=== PATIENT | female | born 2000 | race Hispanic/Latino ===

== ENCOUNTER 2022-03-31 13:30 | Emergency (ER) | payer SELFPAY ==
--- NOTE | 2022-03-31 13:50 | EDPHYS ---
Physician Documentation [facility] Name: Nurys Mao Age: 21 yrs Sex: Female : 2000 Arrival Date: 03/31/2022 Time: 13:31 Bed Waiting Private MD: ED Physician Rae Tan HPI: 03/31 13:57 This 21 yrs old Female presents to ER via Ambulatory with complaints of Facial sd2 Droop. 13:57 21-year-old female presents with chief complaint of left-sided facial drooping that she sd2 just noticed yesterday. She reports she was diagnosed with COVID 2 weeks ago and has fully recovered since then. She states she has had difficulty closing her left eye all the way and difficulty keeping fluids in her mouth due to the left side of her mouth drooping. She denies any facial numbness, tingling or rash. She has not had any extremity weakness, slurred speech or other paresthesias.. Historical: - Allergies: 13:49 No Known Allergies; ll1 - PMHx: 13:49 None; ll1 - PSHx: 13:49 None; ll1 - Immunization history:: Client reports receiving the 2nd dose of the Covid vaccine. - Social history:: Smoking status: Patient denies any tobacco usage or history of. ROS: 13:57 Constitutional: Negative for fever, chills, and weight loss, Eyes: Negative for injury, sd2 pain, redness, and discharge, Cardiovascular: Negative for chest pain, palpitations, and edema, Respiratory: Negative for shortness of breath, cough, wheezing. Abdomen/GI: Negative for abdominal pain, nausea, vomiting, diarrhea. MS/Extremity: Negative for injury and deformity, Skin: Negative for injury, rash, and discoloration, Neuro: Negative for headache, numbness and tingling. Positive for L sided facial droop. Exam: 13:57 Constitutional: This is a well developed, well nourished patient who is awake, alert, sd2 and in no acute distress. Head/Face: Normocephalic, atraumatic. Chest/axilla: Normal chest wall appearance and motion. Nontender with no deformity. Cardiovascular: Regular rate and rhythm with a normal S1 and S2. No gallops, murmurs, or rubs. 2+ distal pulses. Respiratory: Lungs have equal breath sounds bilaterally, clear to auscultation and percussion. No rales, rhonchi or wheezes noted. No increased work of breathing, no retractions or nasal flaring. Abdomen/GI: Soft, non-tender, with normal bowel sounds. No guarding or rebound. No evidence of tenderness throughout. Skin: Warm, dry with normal turgor. Normal color with no rashes, no lesions, and no evidence of cellulitis. MS/ Extremity: Pulses equal, no cyanosis. Neurovascular intact. Full, normal range of motion. Ambulatory without difficulty. Neuro: Awake and alert, GCS 15, oriented to person, place, time, and situation. Cranial nerves II-XII grossly intact aside from L sided facial droop with ability to fully close L eyelid but not able to keep shut and asymmetric blinking of the R eye, inability to lift L eyebrow or smile with L side of the mouth. No significant sensory deficit. Motor strength 5/5 in all extremities. Sensory grossly intact. Cerebellar exam normal. Normal gait. Psych: Awake, alert, with orientation to person, place and time. Behavior, mood, and affect are within normal limits. Vital Signs: 13:45 BP 119 / 72; Pulse 89; Resp 17; Temp 97.8; Pulse Ox 100% ; Weight 85.28 kg; Height 5 ll1 ft. 2 in. (157.48 cm); Pain 0/10; 13:45 Body Mass Index 34.39 (85.28 kg, 157.48 cm) ll1 NIH Stroke Scale Scores: 14:05 NIHSS Score: 2 ss MDM: 13:50 Patient medically screened. sd2 13:57 Data reviewed: vital signs, nurses notes. Counseling: I had a detailed discussion with sd2 the patient and/or guardian regarding: the historical points, exam findings, and any diagnostic results supporting the discharge/admit diagnosis, the need for outpatient follow up, to return to the emergency department if symptoms worsen or persist or if there are any questions or concerns that arise at home. Medical screen evaluation completed. [facility] emergency medical condition absent. ED course: Discussed Walters's palsy with patient. Apparent clinically on exam. No evidence of CVA at this time. Likely 2/2 recent COVID viral illness. Will place on Valtrex and steroids. Pt with no evidence of rash or shingles at this time. Advised of need for outpatient follow up and given resources to do so. Also advised to patch L eye and keep the eye moist with OTC eye drops. Pt comfortable with plan and verbalizes understanding of discharge plan and strict return precautions.. Administered Medications: No medications were administered Disposition Summary: 03/31/22 13:50 Discharge Ordered Location: Home sd2 Problem: new sd2 Symptoms: are unchanged sd2 Condition: Stable sd2 Diagnosis - Walters's palsy sd2 Followup: sd2 - With: Private Physician - When: 1 week - Reason: Recheck today's complaints, Continuance of care, Re-evaluation by your physician Followup: sd2 - With: Emergency Department - When: As needed - Reason: Discharge Instructions: - Discharge Summary Sheet ll1 - Walters Palsy, Adult sd2 Forms: - Medication Reconciliation Form sd2 - Thank You Letter sd2 - Antibiotic Education sd2 - Prescription Opioid Use sd2 - Work release form ll1 Prescriptions: - Prednisone 20 mg Oral Tablet - take 3 tablets by ORAL route once daily for 5 days Decrease to 1/2 tablet daily sd2 for an additional 5 days following initial dose; 20 tablet; Refills: 0, Product Selection Permitted - Valtrex 500 mg Oral Tablet - take 2 tablet by ORAL route 3 times per day for 7 days; 42 tablet; Refills: 0, sd2 Product Selection Permitted NIH Stroke Scale - NIH Stroke Score Date: 03/31/2022 Time: 14:05 Total Score = 2 1a. Level of Consciousness (LOC) - 0(Alert) 1b. Level of Consciousness (LOC) (Month \T\ Age) - 0(Both) 1c. LOC Commands (Open \T\ Closes Eyes/Transportation Assistant) - 0(Both) 2. Best Gaze (Lateral Gaze Paresis) - 0(Normal) 3. Visual Field Loss - 0(No visual loss) 4. Facial Palsy - 2(Partial paralysis) 5a. Left Arm: Motor (10-second hold) - 0(No drift) 5b. Right Arm: Motor (10-second hold) - 0(No drift) 6a. Left Leg: Motor (5-second hold - always test supine) - 0(No drift) 6b. Right Leg: Motor (5-second hold - always test supine) - 0(No drift) 7. Limb Ataxia (finger/nose \T\ heel/odonnell - test with eyes open) - 0(Absent) 8. Sensory Loss (pinprick arms/legs/face) - 0(Normal) 9. Best Language: Aphasia (description/naming/reading) - 0(No aphasia) 10. Dysarthria (speech clarity - read or repeat words) - 0(Normal) 11. Extinction and Inattention (visual/tactile/auditory/spatial/personal) - 0(No abnormality) Initials: ss Signatures: Dillan Barry RN RN ll1 Rae Tan MD MD sd2
--- NOTE | 2022-03-31 13:50 | ER ---
Nurse's Notes [facility] Name: Nurys Mao Age: 21 yrs Sex: Female : 2000 Arrival Date: 03/31/2022 Time: : Bed Waiting Private MD: Diagnosis: Walters's palsy Presentation: 03/31 13:45 Chief complaint: Patient states: L facial droop since yesterday.. No fever. No other ll1 problems walking/talking. Ebola Screen: Patient denies travel to an Ebola-affected area in the 21 days before illness onset. No acute neurological deficit is noted. Initial Sepsis Screen: Does the patient meet any 2 criteria? No. Patient's initial sepsis screen is negative. Does the patient have a suspected source of infection? No. Patient's initial sepsis screen is negative. Risk Assessment: Do you want to hurt yourself or someone else? Patient reports no desire to harm self or others. Onset of symptoms was March 30, 2022. 13:45 Method Of Arrival: Ambulatory ll1 13:45 Acuity: MEG 4 ll1 13:47 Coronavirus screen: Client denies travel out of the [place] in the last 14 days. At this ll1 time, the client does not indicate any symptoms associated with coronavirus-19. Triage Assessment: 13:46 The onset of the patients symptoms was more than six hours ago. General: Appears in no ll1 apparent distress. Behavior is calm, cooperative, appropriate for age. General: states she had covid last week. . Pain: Denies pain. Neuro: Reports L side of face not moving well. . Cardiovascular: No deficits noted. Respiratory: No deficits noted. Stroke Activation: Symptom onset > 6 hours Physician: Stroke Attending; Name: ; Notified At: ; Arrived At: Physician: Chief Stroke Resident; Name: ; Notified At: ; Arrived At: Physician: Stroke Resident; Name: ; Notified At: ; Arrived At: Physician: ED Attending; Name: ; Notified At: ; Arrived At: Physician: ED Resident; Name: ; Notified At: ; Arrived At: Historical: - Allergies: 13:49 No Known Allergies; ll1 - PMHx: 13:49 None; ll1 - PSHx: 13:49 None; ll1 - Immunization history:: Client reports receiving the 2nd dose of the Covid vaccine. - Social history:: Smoking status: Patient denies any tobacco usage or history of. Screenin:05 Abuse screen: Denies threats or abuse. Denies injuries from another. Nutritional ss screening: No deficits noted. Tuberculosis screening: Never had TB. Fall Risk None identified. Assessment: 14:05 VAN Scoring: Arm Drift: Patients demonstrates NO arm weakness. Patient is VAN Negative. ss Patient has been NPO before screening. The patient is alert, and able to follow commands. The patient does not exhibit slurred or garbled speech. The patient is not exhibiting difficulty speaking. The patient is exhibiting difficulty understanding words. The patient is unable to swallow own secretions without drooling or the need for suction. Patient tolerated one teaspoon of water. No drooling, immediate coughing, gurgling, or clearing of the throat was noted. The patient tolerated 90mL of water. No drooling, immediate coughing, gurgling, or clearing of the throat was noted. The patient passed the bedside swallow screening. Oral medications may be given as ordered. Contact Physician for further diet orders. Provider notified of bedside swallow screening results: Rae Tan MD. Vital Signs: 13:45 BP 119 / 72; Pulse 89; Resp 17; Temp 97.8; Pulse Ox 100% ; Weight 85.28 kg; Height 5 ll1 ft. 2 in. (157.48 cm); Pain 0/10; 13:45 Body Mass Index 34.39 (85.28 kg, 157.48 cm) ll1 NIH Stroke Scale Scores: 14:05 NIHSS Score: 2 ss ED Course: 13:31 Patient arrived in ED. mr 13:33 Rae Tan MD is Attending Physician. sd2 13:46 Triage completed. ll1 13:46 Arm band placed on. ll1 14:05 Patient has correct armband on for positive identification. ss 14:05 No provider procedures requiring assistance completed. Patient did not have IV access ss during this emergency room visit. Administered Medications: No medications were administered Medication: 14:05 VIS not applicable for this client. ss Outcome: 13:50 Discharge ordered by . sd2 14:05 Discharged to home ambulatory. ss 14:05 Condition: good 14:05 Discharge instructions given to patient, family, Instructed on discharge instructions, follow up and referral plans. medication usage, Demonstrated understanding of instructions, follow-up care, medications, Prescriptions given X 2. 14:12 Patient left the ED. NIH Stroke Scale - NIH Stroke Score Date: 03/31/2022 Time: 14:05 Total Score = 2 1a. Level of Consciousness (LOC) - 0(Alert) 1b. Level of Consciousness (LOC) (Month \T\ Age) - 0(Both) 1c. LOC Commands (Open \T\ Closes Eyes/Methods Analyst Data Processing) - 0(Both) 2. Best Gaze (Lateral Gaze Paresis) - 0(Normal) 3. Visual Field Loss - 0(No visual loss) 4. Facial Palsy - 2(Partial paralysis) 5a. Left Arm: Motor (10-second hold) - 0(No drift) 5b. Right Arm: Motor (10-second hold) - 0(No drift) 6a. Left Leg: Motor (5-second hold - always test supine) - 0(No drift) 6b. Right Leg: Motor (5-second hold - always test supine) - 0(No drift) 7. Limb Ataxia (finger/nose \T\ heel/odonnell - test with eyes open) - 0(Absent) 8. Sensory Loss (pinprick arms/legs/face) - 0(Normal) 9. Best Language: Aphasia (description/naming/reading) - 0(No aphasia) 10. Dysarthria (speech clarity - read or repeat words) - 0(Normal) 11. Extinction and Inattention (visual/tactile/auditory/spatial/personal) - 0(No abnormality) Initials: Signatures: Rosanna Jimenes Paris Giron RN RN Dillan Barry RN RN 1 Rae Tan MD MD sd2 Corrections: (The following items were deleted from the chart) 13:49 13:45 Chief complaint: Patient states: Facial droop since yesterday.. ll1 ll1 13:49 13:45 Temp 97.8F; ll1 ll1 13:50 13:45 Pulse 89bpm; Resp 17bpm; Pulse Ox 100%; Temp 97.8F; 85.28 kg; Height 5 ll1 ft. 2 in.; BMI: 34.3; Pain 0/10; ll1
[2022-03-31 14:24] VITALS: BP 119/72; TEMP 97.8; O2SAT 100
== END 2022-03-31 14:12 | disposition home or self-care (01) ==
LOC: ER 13:30
DX: G51.0 Bell's palsy (principal)
CPT/HCPCS: 99282

== ENCOUNTER 2024-09-25 17:26 | Emergency (ER) | payer BC ==
--- OUTSIDE RECORDS SUMMARY | 2024-09-25 17:28 | XMS REPORT | Continuity of Care Document ---
Author Name Unknown Address [address] [facility] [address] [place] [address] [facility] thconnect Address [address] [facility] [place] [address] Care Team Providers Care Cleaning Crew Member Name Role Phone Unavailable Unavailable Unavailable Encounters Start Date/Time End Date/Time Encounter Type Admission Type Attending Clinicians Care Facility Care Department Encounter ID Source 2023-03-29 10:15:43 2023-03-29 10:15:43 Outpatient [facility] [id number] Lassiter Results Test Description Test Time Test Comments Results Result Co mments Source [id number] 06:55:18* Test Item Value Reference Range Interpretation Comme nts TESTOSTERONE (test code = 2830) 53 NG/DL See_Comment NOTE: TOTAL TESTOSTERONE ASSAY SENSITIVITY IS 12 NG/DL. TO DETERMINE NORMAL VS. SUBNORMAL TESTOSTERONE IN CHILDREN AND WOMEN, CONSIDER TESTING WITH ULTRASENSITIVE TESTOSTERONE. [Automated message] The system which generated this result transmitted reference range: <=55. The reference range was not used to interpret this result as normal/abnormal. FSH + LH [id number] 06:54:22* Test Item Value Reference Range Interpretation Comme nts FOLLICLE STIM HORMONE (test code = 2700) 5.9 IU/L SEE BELOW EXPEC MARY JANE VALUES FOR FSH FOR FEMALES >17 YEARS MALES FEMALES >=18 YEARS 1.5-12.4 IU/L FOLLICULAR 3.5-12.5 IU/L MID-CYCLE PEAK 4.7-21.5 IU/L LUTEAL PHASE 1.7-7.7 IU/L POSTMENOPAUSAL 25.8-134.8 IU/L LUTEINIZING HORMONE (test code = 2776) 9.9 IU/L SEE BELOW EXPEC MARY JANE VALUES FOR LH FOR FEMALES >17 YEARS MALES FEMALES >=18 YEARS 1.8-8.6 IU/L FOLLICULAR 2.4-12.6 IU/L MID-CYCLE PEAK 14.0-95.6 IU/L LUTEAL PHASE 1.0-11.4 IU/L POSTMENOPAUSAL 7.7-58.5 IU/L TSH, THIRD [id number] 06:54:22* Test Item Value Reference Range Interpretation [facility] TSH, THIRD GENERATION (test code = 2821) 1.420 UIU/ML 0.400-4.100 [id number] 06:54:22* Test Item Value Reference Range Interpretation [facility] PROLACTIN (test code = 2800) 16.9 NG/ML 5.0-37.0 NOTE: Methodolog y is Milagros Ina Electrochemiluminescence Immunoassay (ECLIA). Values obtained with different assays/manufacturers cannot be used interchangeably. Results should not be used as sole basis to establish the presence or absence of malignancy. [id number] 06:54:22* Test Item Value Reference Range Interpretation [facility] ESTRADIOL (test code = 2505) 56.8 PG/ML SEE BELOW EXPECTED VALUES FOR ESTRADIOL FOR FEMALES >=18 YEARS FOLLICULAR . . . . . . . . . . . . . PG/ML 12.4-233.0 OVULATION. . . . . . . . . . . . . . PG/ML 41.0-398.0 LUTEAL PHASE . . . . . . . . . . . . PG/ML 22.3-341.0 POSTMENOPAUSAL SUPPLEMENTED/NON-SUPP . PG/ML <138.0/<20.0 NOTE: TO DETERMINE NORMAL VS. SUBNORMAL ESTRADIOL IN POSTMENOPAUSAL FEMALES, CONSIDER ULTRASENSITIVE ESTRADIOL ([facility] ORDER CODE 5678). METHODOLOGY IS MILAGROS INA ELECTROCHEMILUMINESCENT IMMUNOASSAY WITH A LIMIT OF DETECTION OF 17 PG/ML. HEPATITIS PANEL, [id number] 05:15:03* Test Item Value Reference Range Interpretation [facility] HEPATITIS A IgM (test code = 81851) NON-REACTIVE NON-REACTIVE HEPATITIS B CORE IgM (test code = 4644) NON-REACTIVE NON-REACTIVE HEPATITIS B SURF AG (test code = 2739) NON-REACTIVE NON-REACTIVE HEPATITIS C ANTIBODY (test code = 4675) NON-REACTIVE NON-REACTIVE INTERPRETATION HEPATITIS A: (test code = 2552) (NOTE) Hepatitis A serology shows no evidence of acute hepatitis A. INTERPRETATION HEPATITIS B: (test code = 73485) (NOTE) Hepatitis B serology shows no evidence of acute hepatitis B andno indication of exposure to hepatitis B virus in the previous nicholas eight months. INTERPRETATION HEPATITIS C: (test code = 45053) (NOTE) Hepatitis C serology shows no evidence of exposure to hepatitisC virus at this time. It can take up to 12 months after exposure tothe hepatitis C virus for antibodies to become detectable in the blood in certain patients. HIV 1/2 4TH GEN, RFLX [id number] 05:15:03* Test Item Value Reference Range Interpretation Comme nts HIV 1/2 4TH GEN, RFLX CONF (test code = 3514) NON-REACTIVE NON-REACTIVE UNLESS OTHERWISE INDICATED, ALL TESTING PERFORMED [facility] [address] [place] [address] FIRE PATROLLER: ALY CHA M.D. [place] NUMBER [id number] [facility] [place]. [id number] 03:13:49* Test Item Value Reference Range Interpretation Comme nts RPR RESULT (test code = 3501) NON-REACTIVE NON-REACTIVE RPR TITER (test code = 3500) NOT INDIC. TITER NOT INDIC.
[2024-09-25] MEDS ORDERED: LIDOCAINE 1% MPF 2 ML AMPULE ONE (17:59)
[2024-09-25] MEDS ORDERED: LIDOCAINE 1% MPF 5 ML VIAL ONE (18:11)
[2024-09-25] MEDS ORDERED: BUPIVACAINE 0.5% PF 10 ML VIAL ONE (18:11)
[2024-09-25] MEDS ORDERED: ACETAMINOPHEN 500 MG TAB ONE (18:39)
--- NOTE | 2024-09-25 19:15 | RAD REPORT ---
Exam:Finger-Thumb Left CLINICAL HISTORY: Left finger pain FINDINGS: No fracture or dislocation seen. A radiopaque foreign body not seen A bandage overlies the second digit.
--- NOTE | 2024-09-25 19:58 | ER ---
Nurse's Notes [facility] Name: Nurys Mao Age: 24 yrs Sex: Female : 2000 Arrival Date: 09/25/2024 Time: 17:26 Bed 11 Private MD: Diagnosis: Laceration without foreign body of left index finger without damage to nail Presentation: 09/25 17:44 Chief complaint: Patient states: few hours ago, cut finger with new blade and it ko1 wouldn't stop bleeding. Coronavirus screen: At this time, the client does not indicate any symptoms associated with coronavirus-19. Ebola Screen: No symptoms or risks identified at this time. Initial Sepsis Screen: Does the patient meet any 2 criteria? No. Patient's initial sepsis screen is negative. Does the patient have a suspected source of infection? No. Patient's initial sepsis screen is negative. Risk Assessment: Do you want to hurt yourself or someone else? Patient reports no desire to harm self or others. Onset of symptoms was September 25, 2024. 17:44 Method Of Arrival: Ambulatory ko1 17:44 Acuity: MEG 4 ko1 Triage Assessment: 17:47 General: Appears in no apparent distress. Behavior is calm, cooperative, appropriate ko1 for age. Pain: Complains of pain in palmar aspect of distal phalanx of left index finger. PROCUREMENT PROFESSIONAL LOGISTICS: 17:47 LMP 09/18/2024, unknown ko1 Historical: - Allergies: 17:47 No Known Allergies; ko1 - Home Meds: 17:47 None [Active]; ko1 - PMHx: 17:47 None; ko1 - PSHx: 17:47 None; ko1 - Immunization history:: Adult Immunizations up to date. - Infectious Disease History:: Denies. - Social history:: Smoking status: Patient denies any tobacco usage or history of. Screenin:14 [facility] ED Fall Risk Assessment (Adult) History of falling in the last 3 months, hb including since admission No falls in past 3 months (0 pts) Confusion or Disorientation No (0 pts) Intoxicated or Sedated No (0 pts) Impaired Gait No (0 pts) Mobility Assist Device Used No (0 pt) Altered Elimination No (0 pt) Score/Fall Risk Level 0 - 2 = Low Risk Oriented to surroundings, Maintained a safe environment, Educated pt \T\ family on fall prevention, incl call for assistance when getting out of bed. Abuse screen: Denies threats or abuse. Denies injuries from another. Nutritional screening: No deficits noted. Tuberculosis screening: No symptoms or risk factors identified. Assessment: 18:14 General: Appears in no apparent distress. Behavior is calm, cooperative. Neuro: Level hb of Consciousness is awake, alert, obeys commands, Oriented to person, place, time, situation. Cardiovascular: Patient's skin is warm and dry. Respiratory: Respiratory effort is even, unlabored, Respiratory pattern is regular, symmetrical. Injury Description: Laceration sustained to palmar aspect of distal phalanx of left index finger is 0.5 to 2.5 cm long, was sustained 30-60 minutes ago. a small amount of bleeding noted at this time. 19:16 Reassessment: Patient and/or family updated on plan of care and expected duration. Pain br2 level reassessed. Patient is alert, oriented x 3, equal unlabored respirations, skin warm/dry/pink. General: Appears in no apparent distress. comfortable, Behavior is calm, cooperative. Pain: Complains of pain in palmar aspect of distal phalanx of left index finger Pain does not radiate. Pain currently is 6 out of 10 on a pain scale. Neuro: Cheney Agitation-Sedation Scale (RASS): 0 - Alert and Calm. 20:02 Reassessment: Patient and/or family updated on plan of care and expected duration. Pain br2 level reassessed. Patient is alert, oriented x 3, equal unlabored respirations, skin warm/dry/pink. Patient states feeling better. Patient states symptoms have improved. Vital Signs: 17:44 BP 133 / 93; Pulse 92; Resp 18; Temp 98.4; Pulse Ox 100% ; ko1 ED Course: 17:28 Patient arrived in ED. mr 17:30 Pedro Arthur PA is PHCP. cp 17:31 Jann Lopez MD is Attending Physician. cp 17:47 Triage completed. ko1 17:47 Arm band placed on right wrist. Patient placed in an exam room, on a stretcher, Patient ko1 notified of wait time. 17:58 Nilsa Malone, TERRIE is Primary Nurse. hb 18:14 Patient has correct armband on for positive identification. Provided Education on: hb laceration repair, aftercare, use of call light. 18:14 No provider procedures requiring assistance completed. Patient did not have IV access hb during this emergency room visit. 19:03 XRAY Finger-Thumb Left In Process Unspecified. EDMS 20:02 Wound care: to laceration located on palmar aspect of distal phalanx of left index br2 finger was cleaned with Betadine, soaked in Betadine solution. 20:03 Dressings: Adaptic X 1; palmar aspect of distal phalanx of left index finger coban with br2 triple antibiotic. Recheck. Administered Medications: 18:46 Drug: Acetaminophen PO 1000 mg PO once Route: PO; hb 20:06 Follow up: Response: No adverse reaction br2 19:38 Drug: Bupivacaine Infiltration (0.5 %) 10 ml 10 ml Infiltration once Volume: 10 ml; br2 Route: Infiltration; 19:38 Drug: Lidocaine Infiltration (1 %) 5 ml 5 ml Infiltration once; to bedside Volume: 5 br2 ml; Route: Infiltration; Medication: 18:14 VIS not applicable for this client. hb Outcome: 19:57 Discharge ordered by . adalid 20:04 Discharged to home ambulatory, br2 20:04 Condition: improved 20:04 Discharge instructions given to patient, Instructed on discharge instructions, follow up and referral plans. Demonstrated understanding of instructions, follow-up care, 20:06 Patient left the ED. br2 Signatures: Dispatcher [employer] EDGA Rosanna Jimenes, Michael Rodriguez mr Pedro Arthur PA PA cp Baxter, Heather, RN RN Safia Gregory RN RN ko1 Shabana Cowart RN RN br2
--- NOTE | 2024-09-25 19:59 | EDPHYS ---
Physician Documentation [facility] Name: Nurys Mao Age: 24 yrs Sex: Female : 2000 Arrival Date: 09/25/2024 Time: 17:26 Bed 11 Private MD: ED Physician Jann Lopez HPI: 09/25 18:20 This 24 yrs old Female presents to ER via Ambulatory with complaints of Finger cp laceration. 18:20 The patient or guardian reports a laceration, simple. The complaints affect the palmar cp aspect of distal phalanx of left index finger. 18:20 Context: resulted from use of knife. Onset: The symptoms/episode began/occurred today. cp Associated signs and symptoms: The patient has no apparent associated signs or symptoms. Severity of symptoms: in the emergency department the symptoms bleeding controlled with pressure dressing. 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 - Infectious Disease History:: Denies. - Social history:: Smoking status: Patient denies any tobacco usage or history of. ROS: 18:25 Skin: Positive for laceration(s), of the palmar aspect of distal phalanx of left index cp finger, 18:25 Constitutional: history per hpi cp 18:25 Neuro: Negative for numbness, weakness, cp 18:25 All other systems are negative, Exam: 18:30 Head/Face: Normocephalic, atraumatic. cp 18:30 Constitutional: The patient appears in no acute distress, alert, awake, comfortable, well developed, well nourished, 18:30 Musculoskeletal/extremity: Extremities: noted in the left index finger: Perfusion: the extremity is normally perfused throughout, Sensation intact. 18:30 Skin: injury, laceration(s), the wound is approximately 2 cm(s), of the palmar aspect of distal phalanx of left index finger, that can be described as clean, no foreign body, linear, with mild bleeding, nail intact with injury, Vital Signs: 17:44 BP 133 / 93; Pulse 92; Resp 18; Temp 98.4; Pulse Ox 100% ; ko1 Laceration: 19:53 Wound Repair of 2cm ( 0.8in ) subcutaneous laceration to palmar aspect of distal cp phalanx of left index finger. Linear shaped.. Distal neuro/vascular/tendon intact. Anesthesia: Digital block administered with 4 mls of Lido/Marcaine. Wound prep: Moderate cleansing by me, Wound irrigation by me. Skin closed with 4 5-0 Prolene using interrupted sutures and sterile technique. Dressed with Bacitracin. Patient tolerated well. MDM: 17:50 Medical Screening Exam initiated cp 19:00 Differential diagnosis: open fracture, contusion, laceration, tendon injury, nail cp injury. 19:13 Independent interpretation of the following test(s) in the Emergency Department X-Ray: cp My interpretation is images of left hand negative for fracture. 19:57 Data reviewed: vital signs, nurses notes, radiologic studies, plain films, and as a cp result, I will discharge patient. 19:57 I considered the following discharge prescriptions or medication management in the emergency department Medications were administered in the Emergency Department. See OCT. 09/25 18:26 Order name: XRAY Finger-Thumb Left; Complete Time: 19:19 09/25 19:19 Interpretation: Report reviewed. 09/25 18:12 Order name: Wound Care; Complete Time: 20:06 09/25 18:12 Order name: Dressing - Wound; Complete Time: 20:06 09/25 18:12 Order name: Gloves, Sterile; Complete Time: 18:12 09/25 18:12 Order name: Setup Suture Tray; Complete Time: 18:12 09/25 19:53 Order name: Wound dressing; Complete Time: 20:06 Administered Medications: 18:46 Drug: Acetaminophen PO 1000 mg PO once Route: PO; hb 20:06 Follow up: Response: No adverse reaction br2 19:38 Drug: Bupivacaine Infiltration (0.5 %) 10 ml 10 ml Infiltration once Volume: 10 ml; br2 Route: Infiltration; 19:38 Drug: Lidocaine Infiltration (1 %) 5 ml 5 ml Infiltration once; to bedside Volume: 5 br2 ml; Route: Infiltration; Disposition Summary: 09/25/24 19:57 Discharge Ordered Notes: Location: Home cp Problem: new cp Symptoms: have improved cp Condition: Stable cp Diagnosis - Laceration without foreign body of left index finger without damage to nail cp Followup: cp - With: Private Physician - When: 7 - 10 days - Reason: Staple/Suture removal Discharge Instructions: - Discharge Summary Sheet cp - Laceration Care, Adult cp Forms: - Medication Reconciliation Form cp - Antibiotic Education cp - Prescription Opioid Use cp - Patient Portal Instructions cp - Leadership Thank You Letter cp Addendum: 09/28/2024 08:57 Co-signature as Attending Physician, Jann Lopez MD I reviewed the patient's care r t provided by the Advanced Practice Provider and agree with the diagnosis and treatment plan. Signatures: Dispatcher [employer] EDMS Pedro Arthur PA PA cp Nilsa Malone, TERRIE RN Safia Gregory RN RN ko1 Jann Lopez MD MD rt Shabana Cowart RN RN br2
[2024-09-25 23:13] VITALS: BP 133/93; TEMP 98.4; O2SAT 100
== END 2024-09-25 20:06 | disposition home or self-care (01) ==
LOC: ER 17:26
DX: S61.211A Laceration without foreign body of left index finger without damage to nail, initial encounter (principal)
CPT/HCPCS: 73140; 99284; 12041; J2003